=== PATIENT | female | born 1950 | race Caucasian/White ===

== ENCOUNTER 2017-12-08 19:23 | Emergency (ER) | payer OTHER ==
[~2017-12-08] VITALS: Ht 170.2 cm; Wt 83.6 kg
[~2017-12-08 19:23] MED LIST: CALTRATE 600 +1 EACH PO; ESTR0.6261 PO; GLUC-133 PO; IBUP-1984 PO; MULT-1085 PO
[2017-12-08 19:31] VITALS: BP 153/100
[2017-12-08] MEDS ORDERED: acetaminophen 325mg tablet PO ONE (20:30)
[2017-12-08] MEDS ORDERED: TETanus/Pertussis (Acell)/Diphther VAC/PF (Tdap-Adult) 0.5ml syringe IM ONE (20:30)
== END 2017-12-08 21:11 | disposition home or self-care (01) ==
LOC: ER 19:24
DX: S61.215A Laceration without foreign body of left ring finger without damage to nail, initial encounter (principal); Z88.2 Allergy status to sulfonamides; Z88.8 Allergy status to other drugs, medicaments and biological substances; Z79.899 Other long term (current) drug therapy; W26.0XXA Contact with knife, initial encounter; Y93.89 Activity, other specified; Y92.89 Other specified places as the place of occurrence of the external cause; Y99.8 Other external cause status
CPT/HCPCS: 12001; 90471; 90715; 99283; A6449

== ENCOUNTER → 2019-10-24 | Outpatient (CLI) | payer BC | END | disposition home or self-care (01) | LOC: 64 CT 08:40 | PROVIDERS: ATTEND Family Medicine | DX: R91.1 Solitary pulmonary nodule (principal); K44.9 Diaphragmatic hernia without obstruction or gangrene; R91.8 Other nonspecific abnormal finding of lung field | CPT/HCPCS: 71250 ==

== ENCOUNTER 2020-07-07 08:46 | Outpatient (CLI) | payer BC | END 2020-07-07 23:59 | disposition home or self-care (01) | LOC: 64 CT 08:46 | PROVIDERS: ATTEND Internal Medicine Critical Care Medicine | DX: R91.1 Solitary pulmonary nodule (principal); J98.11 Atelectasis; M43.8X6 Other specified deforming dorsopathies, lumbar region; K76.0 Fatty (change of) liver, not elsewhere classified; I70.0 Atherosclerosis of aorta; K44.9 Diaphragmatic hernia without obstruction or gangrene | CPT/HCPCS: 71250 ==

== ENCOUNTER 2020-09-06 06:36 | Emergency (ER) | payer BC, MEDICARE ==
[~2020-09-06] VITALS: Ht 170.2 cm; Wt 90.3 kg
[2020-09-06 06:42] VITALS: BP 163/97
== END 2020-09-06 08:52 | disposition home or self-care (01) ==
LOC: ER 06:36
DX: S61.011A Laceration without foreign body of right thumb without damage to nail, initial encounter (principal); Z79.899 Other long term (current) drug therapy; Z72.89 Other problems related to lifestyle; W26.0XXA Contact with knife, initial encounter; Y93.89 Activity, other specified; Y92.89 Other specified places as the place of occurrence of the external cause; Y99.8 Other external cause status
CPT/HCPCS: 12001; 73140; 99283

== ENCOUNTER 2020-09-20 07:32 | Outpatient (CLI) | payer BC, MEDICARE ==
[2020-09-20 08:24] LABS: ALANINE AMINOTRANSFERASE 48 U/L (12-78); ALBUMIN/GLOBULIN RATIO 1.1 (1.1-1.5); ALKALINE PHOSPHATASE 80 IU/L (46-116); ANION GAP 8 (8-16); ASPARTATE AMINO TRANSFERASE 22 U/L (10-37); BILIRUBIN,TOTAL 0.8 MG/DL (0.1-1.0); BLOOD UREA NITROGEN 22 MG/DL (7-18); BUN/CREATININE RATIO 25.6 (6.6-38.0); CALCIUM 9.1 MG/DL (8.5-10.1); CHLORIDE 105 MMOL/L (99-107); CHOL/HDL RATIO 4.4 (0.00-4.99); CHOLESTEROL 231 MG/DL (0-200); CREATININE 0.86 MG/DL (0.40-0.90); GLUCOSE 113 MG/DL (70-104); HDL CHOLESTEROL 53 MG/DL (35-60); LDL CHOLESTEROL 152 MG/DL (50-100); POTASSIUM 4.2 MMOL/L (3.5-5.1); SODIUM 141 MMOL/L (135-145); TOTAL CARBON DIOXIDE 27.9 MMOL/L (24-32); TOTAL PROTEIN 7.6 G/DL (6.4-8.2); TRIGLYCERIDES 99 MG/DL (20-135); eGFR 65 ML/MIN
== END 2020-09-20 23:59 | disposition home or self-care (01) ==
LOC: LAB 07:32
PROVIDERS: ATTEND Family Medicine
DX: E78.00 Pure hypercholesterolemia, unspecified (principal); I10 Essential (primary) hypertension
CPT/HCPCS: 36415; 80053; 80061

== ENCOUNTER 2020-12-28 08:45 | Outpatient (CLI) | payer BC, MEDICARE | END 2020-12-28 23:59 | disposition home or self-care (01) | LOC: 64 CT 08:45 | PROVIDERS: ATTEND Internal Medicine Critical Care Medicine | DX: R91.1 Solitary pulmonary nodule (principal); I25.10 Atherosclerotic heart disease of native coronary artery without angina pectoris | CPT/HCPCS: 71250 ==

== ENCOUNTER 2021-03-03 10:10 | Emergency (ER) | payer OTHER, BC, MEDICARE ==
[~2021-03-03] VITALS: Ht 170.2 cm; Wt 89.8 kg
[2021-03-03] MEDS ORDERED: ondansetron 4mg rapidly disintigrating tab PO ONE (10:20)
[2021-03-03] MEDS ORDERED: HYDROcodone/acetaminophen 5mg/325mg tablet PO ONE (10:20)
[2021-03-03 10:30] VITALS: BP 171/96
--- NOTE | 2021-03-03 10:41 | NUR ---
Pt returned from CT.
--- NOTE | 2021-03-03 11:41 | NUR ---
Pt and given and understands d/c instructions. Ambulatory with a slow steady gait.
== END 2021-03-03 11:43 | disposition home or self-care (01) ==
LOC: ER 10:10
DX: S50.312A Abrasion of left elbow, initial encounter (principal); R51.9 Headache, unspecified; M54.89 Other dorsalgia; I10 Essential (primary) hypertension; Z72.89 Other problems related to lifestyle; Z79.899 Other long term (current) drug therapy; V89.2XXA Person injured in unspecified motor-vehicle accident, traffic, initial encounter; Y93.89 Activity, other specified; Y92.89 Other specified places as the place of occurrence of the external cause; Y99.8 Other external cause status
CPT/HCPCS: 70450; 72125; 99285

== ENCOUNTER 2021-03-07 07:27 | Emergency (ER) | payer OTHER, BC, MEDICARE | END 2021-03-07 08:02 | disposition left against medical advice (07) | LOC: ER 07:29 | DX: Z53.21 Procedure and treatment not carried out due to patient leaving prior to being seen by health care provider (principal) ==

== ENCOUNTER 2021-03-21 13:44 | Outpatient (CLI) | payer BC, MEDICARE | END 2021-03-21 23:59 | disposition home or self-care (01) | LOC: RAD 13:44 | PROVIDERS: ATTEND Family Medicine | DX: S22.071A Stable burst fracture of T9-T10 vertebra, initial encounter for closed fracture (principal); M43.8X6 Other specified deforming dorsopathies, lumbar region; X58.XXXA Exposure to other specified factors, initial encounter; Y93.89 Activity, other specified; Y92.89 Other specified places as the place of occurrence of the external cause; Y99.8 Other external cause status | CPT/HCPCS: 72146; 72148 ==

== ENCOUNTER 2021-10-05 07:14 | Outpatient (CLI) | payer BC, MEDICARE ==
[2021-10-05 08:01] LABS: BASOPHILS % (AUTO) 0.7 % (0-1); EOSINOPHILS # (AUTO) 0.3 X10'3 (0-0.9); EOSINOPHILS % (AUTO) 5.6 % (0-6); HEMATOCRIT 43.5 % (35.0-45.0); HEMOGLOBIN 14.7 g/dl (12.0-16.0); LYMPHOCYTES # (AUTO) 1.8 X10'3 (1.1-4.8); LYMPHOCYTES % (AUTO) 29.5 % (21-51); MEAN CORPUSCULAR HEMOGLOBIN 29.2 PG (27.0-31.0); MEAN CORPUSCULAR HGB CONC 33.8 g/dL (33.0-36.5); MEAN CORPUSCULAR VOLUME 86.5 FL (78-98); MEAN PLATELET VOLUME 7.5 FL (7.4-10.4); MONOCYTES # (AUTO) 0.4 X10'3 (0-0.9); MONOCYTES % (AUTO) 6.9 % (2-12); NEUTROPHILS # (AUTO) 3.5 X10'3 (1.8-7.7); NEUTROPHILS % (AUTO) 57.3 % (42-75); PLATELET COUNT 262 X10'3 (140-440); RED BLOOD COUNT 5.02 X10'6 (4.20-5.60); RED CELL DISTRIBUTION WIDTH 14.6 % (11.5-14.5); WHITE BLOOD COUNT 6.1 X10'3 (4.5-11.0)
[2021-10-05 08:16] LABS: ALBUMIN 3.9 G/DL (3.4-5.0); ALBUMIN/GLOBULIN RATIO 1.1 (1.1-1.5); ANION GAP 7 (8-16); ASPARTATE AMINO TRANSFERASE 24 U/L (10-37); BILIRUBIN,TOTAL 0.8 MG/DL (0.1-1.0); BLOOD UREA NITROGEN 17 MG/DL (7-18); BUN/CREATININE RATIO 19.8 (6.6-38.0); CHLORIDE 107 MMOL/L (99-107); CREATININE 0.86 MG/DL (0.40-0.90); GLUCOSE 114 MG/DL (70-104); POTASSIUM 4.1 MMOL/L (3.5-5.1); SODIUM 143 MMOL/L (135-145); TOTAL CARBON DIOXIDE 29.4 MMOL/L (24-32); TOTAL PROTEIN 7.5 G/DL (6.4-8.2); eGFR 65 ML/MIN
[2021-10-05 08:17] LABS: ALANINE AMINOTRANSFERASE 38 U/L (12-78); ALKALINE PHOSPHATASE 75 IU/L (46-116); CHOL/HDL RATIO 3.8 (0.00-4.99); CHOLESTEROL 248 MG/DL (0-200); HDL CHOLESTEROL 65 MG/DL (35-60); LDL CHOLESTEROL 143 MG/DL (50-100); TRIGLYCERIDES 100 MG/DL (20-135)
[2021-10-05 08:34] LABS: HEMOGLOBIN A1C 5.6 % (4.5-6.2)
== END 2021-10-05 23:59 | disposition home or self-care (01) ==
LOC: LAB 07:14
PROVIDERS: ATTEND Family Medicine
DX: Z00.00 Encounter for general adult medical examination without abnormal findings (principal); D64.9 Anemia, unspecified; R79.9 Abnormal finding of blood chemistry, unspecified; E11.9 Type 2 diabetes mellitus without complications; I10 Essential (primary) hypertension; E55.9 Vitamin D deficiency, unspecified; E78.00 Pure hypercholesterolemia, unspecified
CPT/HCPCS: 36415; 80053; 80061; 82306; 83036; 84443; 85025

== ENCOUNTER 2022-01-13 10:29 | Outpatient (CLI) | payer BC, MEDICARE | END 2022-01-13 23:59 | disposition home or self-care (01) | LOC: RAD 10:29 | PROVIDERS: ATTEND Internal Medicine Critical Care Medicine | DX: R91.8 Other nonspecific abnormal finding of lung field (principal); K76.0 Fatty (change of) liver, not elsewhere classified; N28.1 Cyst of kidney, acquired; M43.8X5 Other specified deforming dorsopathies, thoracolumbar region | CPT/HCPCS: 71250 ==

== ENCOUNTER 2022-05-11 10:13 | Outpatient (CLI) | payer BC, MEDICARE | END 2022-05-11 23:59 | disposition home or self-care (01) | LOC: RAD 10:13 | PROVIDERS: ATTEND Physician Assistant | DX: S46.811A Strain of other muscles, fascia and tendons at shoulder and upper arm level, right arm, initial encounter (principal); M75.21 Bicipital tendinitis, right shoulder; M75.81 Other shoulder lesions, right shoulder; S43.431A Superior glenoid labrum lesion of right shoulder, initial encounter; M75.51 Bursitis of right shoulder; M25.411 Effusion, right shoulder; M19.011 Primary osteoarthritis, right shoulder; X58.XXXA Exposure to other specified factors, initial encounter; Y93.89 Activity, other specified; Y92.89 Other specified places as the place of occurrence of the external cause; Y99.8 Other external cause status | CPT/HCPCS: 73030; 73221 ==

== ENCOUNTER 2022-10-17 13:22 | Outpatient (CLI) | payer BC, MEDICARE | END 2022-10-17 23:59 | disposition home or self-care (01) | LOC: RAD 13:22 | PROVIDERS: ATTEND Physician Assistant | DX: M51.35 Other intervertebral disc degeneration, thoracolumbar region (principal); M48.05 Spinal stenosis, thoracolumbar region; M50.30 Other cervical disc degeneration, unspecified cervical region; M12.88 Other specific arthropathies, not elsewhere classified, other specified site; M25.78 Osteophyte, vertebrae | CPT/HCPCS: 72052; 72074; 72110; 72114 ==

== ENCOUNTER 2022-10-26 13:50 | Emergency (ER) | payer BC, MEDICARE ==
[~2022-10-26] VITALS: Ht 170.2 cm; Wt 90.9 kg
[2022-10-26 14:07] VITALS: BP 146/95
[2022-10-26 16:19] LABS: CLARITY,URINE CLOUDY (Clear); COLOR,URINE YELLOW (Yellow); GLUCOSE, URINE NEGATIVE (Neg); KETONES,URINE NEGATIVE (Neg); LEUKOCYTE ESTERASE ,URINE SMALL (Neg); NITRITES, URINE NEGATIVE (Neg); OCCULT BLOOD,URINE LARGE (Neg); PH,URINE 5.5 (4.8-8.0); PROTEIN,URINE NEGATIVE (Neg); UROBILINOGEN,URINE 0.2 E.U/dL (0.2-1.0)
[2022-10-26 16:22] LABS: UA COLLECTION TYPE CLN CATCH MIDSTREAM
[2022-10-26 16:31] LABS: BACTERIA,URINE 2+ /HPF (Neg); MUCUS STRANDS FEW /LPF (Neg); SQUAMOUS EPITHELIAL CELL,UR FEW /LPF (FEW); WBC CLUMPS,URINE FEW /HPF (NEGATIVE); WBC,URINE 20-30 /HPF (0-4)
[2022-10-26] MEDS ORDERED: amox tr/potassium clavulanate 875/125mg TAB PO ONE (16:35)
[2022-10-26] MEDS ORDERED: AMOX-117 PO (16:35)
== END 2022-10-26 16:50 | disposition home or self-care (01) ==
LOC: ER 13:51
DX: N39.0 Urinary tract infection, site not specified (principal); I10 Essential (primary) hypertension; G89.29 Other chronic pain; Z72.89 Other problems related to lifestyle; Z79.899 Other long term (current) drug therapy
CPT/HCPCS: 81001; 87077; 87088; 87186; 99284

== ENCOUNTER 2022-11-06 14:31 | Outpatient (CLI) | payer BC ==
[~2022-11-06 14:31] MED LIST changes: +AMOX-117 PO
== END 2022-11-06 23:59 | disposition home or self-care (01) ==
LOC: RAD 14:31
PROVIDERS: ATTEND Physician Assistant
DX: M51.37 Other intervertebral disc degeneration, lumbosacral region (principal); M46.1 Sacroiliitis, not elsewhere classified; M43.17 Spondylolisthesis, lumbosacral region; M53.87 Other specified dorsopathies, lumbosacral region; S32.010S Wedge compression fracture of first lumbar vertebra, sequela; X58.XXXS Exposure to other specified factors, sequela
CPT/HCPCS: 72131

== ENCOUNTER 2022-12-29 13:37 | Outpatient (CLI) | payer BC ==
[~2022-12-29 13:37] MED LIST changes: -AMOX-117 PO
== END 2022-12-29 23:59 | disposition home or self-care (01) ==
LOC: RAD 13:37
PROVIDERS: ATTEND Physician Assistant
DX: S32.010D Wedge compression fracture of first lumbar vertebra, subsequent encounter for fracture with routine healing (principal); M47.817 Spondylosis without myelopathy or radiculopathy, lumbosacral region; M48.07 Spinal stenosis, lumbosacral region; M25.78 Osteophyte, vertebrae; X58.XXXD Exposure to other specified factors, subsequent encounter
CPT/HCPCS: 72148

== ENCOUNTER → 2023-01-25 | Outpatient (CLI) | payer BC | END | disposition home or self-care (01) | LOC: 64 CT 14:57 | PROVIDERS: ATTEND Internal Medicine Critical Care Medicine | DX: S22.071A Stable burst fracture of T9-T10 vertebra, initial encounter for closed fracture (principal); R91.8 Other nonspecific abnormal finding of lung field; R91.1 Solitary pulmonary nodule; N28.1 Cyst of kidney, acquired; X58.XXXA Exposure to other specified factors, initial encounter; Y93.89 Activity, other specified; Y92.89 Other specified places as the place of occurrence of the external cause; Y99.8 Other external cause status | CPT/HCPCS: 71250 ==

== ENCOUNTER 2024-01-17 07:50 | Outpatient (CLI) | payer BC ==
[2024-01-17 08:32] LABS: BASOPHILS % (AUTO) 0.7 % (0-1); EOSINOPHILS # (AUTO) 0.3 X10'3 (0-0.9); EOSINOPHILS % (AUTO) 4.5 % (0-6); HEMATOCRIT 45.4 % (35.0-45.0); HEMOGLOBIN 15.7 g/dl (12.0-16.0); LYMPHOCYTES # (AUTO) 2.3 X10'3 (1.1-4.8); MEAN CORPUSCULAR HEMOGLOBIN 30.6 PG (27.0-31.0); MEAN CORPUSCULAR HGB CONC 34.5 g/dL (33.0-36.5); MEAN CORPUSCULAR VOLUME 88.5 FL (78-98); MEAN PLATELET VOLUME 7.5 FL (7.4-10.4); MONOCYTES # (AUTO) 0.4 X10'3 (0-0.9); MONOCYTES % (AUTO) 5.7 % (2-12); NEUTROPHILS # (AUTO) 3.8 X10'3 (1.8-7.7); NEUTROPHILS % (AUTO) 55.1 % (42-75); PLATELET COUNT 239 X10'3 (140-440); RED BLOOD COUNT 5.13 X10'6 (4.20-5.60); RED CELL DISTRIBUTION WIDTH 14.1 % (11.5-14.5); WHITE BLOOD COUNT 6.9 X10'3 (4.5-11.0)
[2024-01-17 08:45] LABS: ALANINE AMINOTRANSFERASE 36 U/L (12-78); ALBUMIN 3.9 G/DL (3.4-5.0); ALBUMIN/GLOBULIN RATIO 1.1 (1.1-1.5); ALKALINE PHOSPHATASE 60 IU/L (46-116); ANION GAP 7 (8-16); ASPARTATE AMINO TRANSFERASE 20 U/L (10-37); BILIRUBIN,TOTAL 0.7 MG/DL (0.1-1.0); BLOOD UREA NITROGEN 22 MG/DL (7-18); BUN/CREATININE RATIO 22.7 (10.0-20.0); CALCIUM 9.9 MG/DL (8.5-10.1); CHLORIDE 106 MMOL/L (99-107); CREATININE 0.97 MG/DL (0.40-0.90); GLUCOSE 103 MG/DL (70-104); POTASSIUM 3.5 MMOL/L (3.5-5.1); SODIUM 144 MMOL/L (135-145); TOTAL CARBON DIOXIDE 30.6 MMOL/L (24-32); TOTAL PROTEIN 7.6 G/DL (6.4-8.2); eGFR 56 ML/MIN
[2024-01-17 08:48] LABS: HEMOGLOBIN A1C 5.3 % (4.5-6.2)
[2024-01-17 08:54] LABS: CHOL/HDL RATIO 3.4 (0.00-4.99); CHOLESTEROL 218 MG/DL (0-200); HDL CHOLESTEROL 65 MG/DL (35-60); LDL CHOLESTEROL 121 MG/DL (50-100); THYROID STIMULATING HORMONE 1.67 ulU/ml (0.34-4.50); TRIGLYCERIDES 83 MG/DL (20-135)
== END 2024-01-17 23:59 | disposition home or self-care (01) ==
LOC: LAB 07:50
PROVIDERS: ATTEND Internal Medicine
DX: I10 Essential (primary) hypertension (principal); Z76.89 Persons encountering health services in other specified circumstances
CPT/HCPCS: 36415; 80053; 80061; 82043; 83036; 84443; 85025

== ENCOUNTER 2024-05-20 15:41 | Outpatient (CLI) | payer BC ==
[2024-05-20 16:24] LABS: ALBUMIN 4.2 G/DL (3.4-5.0); ANION GAP 10 (8-16); BLOOD UREA NITROGEN 24 MG/DL (7-18); BUN/CREATININE RATIO 22.4 (10.0-20.0); CALCIUM 9.7 MG/DL (8.5-10.1); CHLORIDE 102 MMOL/L (99-107); CREATININE 1.07 MG/DL (0.40-0.90); GLUCOSE 98 MG/DL (70-104); PHOSPHORUS 3.7 MG/DL (2.3-4.5); POTASSIUM 3.5 MMOL/L (3.5-5.1); SODIUM 141 MMOL/L (135-145); TOTAL CARBON DIOXIDE 29.3 MMOL/L (24-32); eGFR 50 ML/MIN
== END 2024-05-20 23:59 | disposition home or self-care (01) ==
LOC: RAD 15:41
PROVIDERS: ATTEND Family Medicine
DX: N18.31 Chronic kidney disease, stage 3a (principal)
CPT/HCPCS: 36415; 80069

== ENCOUNTER 2024-08-27 15:41 | Outpatient (CLI) | payer BC ==
[2024-08-27 16:21] LABS: ANION GAP 6 (8-16); BLOOD UREA NITROGEN 24 MG/DL (7-18); BUN/CREATININE RATIO 26.4 (10.0-20.0); CHLORIDE 106 MMOL/L (99-107); CREATININE 0.91 MG/DL (0.40-0.90); GLUCOSE 110 MG/DL (70-104); SODIUM 141 MMOL/L (135-145); TOTAL CARBON DIOXIDE 28.6 MMOL/L (24-32); eGFR 60 ML/MIN
== END 2024-08-27 23:59 | disposition home or self-care (01) ==
LOC: RAD 15:41
PROVIDERS: ATTEND Family Medicine
DX: I12.9 Hypertensive chronic kidney disease with stage 1 through stage 4 chronic kidney disease, or unspecified chronic kidney disease (principal); N18.31 Chronic kidney disease, stage 3a; J45.990 Exercise induced bronchospasm
CPT/HCPCS: 36415; 80048

== ENCOUNTER 2024-12-11 08:07 | Outpatient (CLI) | payer BC ==
[2024-12-11 08:34] LABS: MEAN PLATELET VOLUME 6.9 FL (7.4-10.4); RED CELL DISTRIBUTION WIDTH 14.2 % (11.5-14.5)
[2024-12-11 09:17] LABS: CHOL/HDL RATIO 3.3 (0.00-4.99); CREATININE 1.21 MG/DL (0.40-0.90); LDL CHOLESTEROL 115 MG/DL (50-100); TOTAL CARBON DIOXIDE 28.0 MMOL/L (24-32); eGFR 43 ML/MIN
[2024-12-12 11:16] LABS: THYROXINE (T4) 7.6 ug/dL (4.5-12.0)
== END 2024-12-11 23:59 | disposition home or self-care (01) ==
LOC: RAD 08:07
PROVIDERS: ATTEND Physician Assistant
DX: I12.9 Hypertensive chronic kidney disease with stage 1 through stage 4 chronic kidney disease, or unspecified chronic kidney disease (principal); N18.31 Chronic kidney disease, stage 3a; E78.2 Mixed hyperlipidemia; E55.9 Vitamin D deficiency, unspecified; R73.9 Hyperglycemia, unspecified; R53.83 Other fatigue; Z13.29 Encounter for screening for other suspected endocrine disorder
CPT/HCPCS: 36415; 80053; 80061; 82306; 83036; 84436; 84443; 85025

== ENCOUNTER 2025-01-14 12:59 | Outpatient (CLI) | payer BC ==
[2025-01-14 13:37] LABS: MEAN PLATELET VOLUME 7.7 FL (7.4-10.4); RED CELL DISTRIBUTION WIDTH 14.0 % (11.5-14.5)
[2025-01-14 13:38] LABS: LEUKOCYTE ESTERASE ,URINE TRACE (Neg); NITRITES, URINE NEGATIVE (Neg); OCCULT BLOOD,URINE NEGATIVE (Neg); UA COLLECTION TYPE CLN CATCH MIDSTREAM
[2025-01-14 13:46] LABS: SQUAMOUS EPITHELIAL CELL,UR NONE SEEN /LPF (FEW)
[2025-01-14 13:59] LABS: CREATININE,URINE RANDOM 106.0 MG/DL; TOTAL PROTEIN,URINE RANDOM < 6.0 MG/DL
[2025-01-14 14:05] LABS: CREATININE 1.01 MG/DL (0.40-0.90); PHOSPHORUS 3.9 MG/DL (2.3-4.5); TOTAL CARBON DIOXIDE 26.2 MMOL/L (24-32); eGFR 54 ML/MIN
== END 2025-01-14 23:59 | disposition home or self-care (01) ==
LOC: LAB 12:59
PROVIDERS: ATTEND Internal Medicine Endocrinology, Diabetes & Metabolism
DX: N18.9 Chronic kidney disease, unspecified (principal); R94.4 Abnormal results of kidney function studies; N39.0 Urinary tract infection, site not specified; D63.1 Anemia in chronic kidney disease; E61.1 Iron deficiency; E55.9 Vitamin D deficiency, unspecified; R80.9 Proteinuria, unspecified; M10.9 Gout, unspecified
CPT/HCPCS: 36415; 80069; 81001; 82306; 82570; 82728; 83540; 83735; 83970; 84156; 84550; 85025; 87088

== ENCOUNTER 2025-02-17 13:39 | Outpatient (CLI) | payer BC ==
[2025-02-17 14:23] LABS: CREATININE 1.22 MG/DL (0.40-0.90); PHOSPHORUS 3.7 MG/DL (2.3-4.5); TOTAL CARBON DIOXIDE 33.0 MMOL/L (24-32); eGFR 43 ML/MIN
== END 2025-02-17 23:59 | disposition home or self-care (01) ==
LOC: LAB 13:39
PROVIDERS: ATTEND Internal Medicine Endocrinology, Diabetes & Metabolism
DX: N18.31 Chronic kidney disease, stage 3a (principal); R94.4 Abnormal results of kidney function studies
CPT/HCPCS: 36415; 80069

== ENCOUNTER 2025-03-18 13:29 | Outpatient (CLI) | payer BC ==
--- NOTE | 2025-03-18 14:56 | RADIOLOGY REPORT ---
CLINICAL INDICATION: PAIN IN RIGHT AND LEFT HAND TECHNIQUE: 2 radiographic views of the right hand were obtained. Comparison: None FINDINGS/IMPRESSION: There is no evidence of acute fracture or dislocation. The visualized joint space is well maintained. The alignment is anatomical. There is no radiopaque foreign body.
--- NOTE | 2025-03-18 14:58 | RADIOLOGY REPORT ---
CLINICAL INDICATION: PAIN IN RIGHT AND LEFT HAND TECHNIQUE: 2 radiographic views of the left hand were obtained. Comparison: DI HAND,LIMITED (AP/LAT) on DOS: 03/18/25 FINDINGS/IMPRESSION: There is no evidence of acute fracture or dislocation. Severe osteoarthrosis of the 1st carpometacarpal joint.
== END 2025-03-18 23:59 | disposition home or self-care (01) ==
LOC: RAD 13:29
PROVIDERS: ATTEND Physician Assistant
DX: M18.12 Unilateral primary osteoarthritis of first carpometacarpal joint, left hand (principal); M79.641 Pain in right hand; M79.642 Pain in left hand
CPT/HCPCS: 73120